=== PATIENT | female | born 1985 | race Caucasian/White ===

== ENCOUNTER 2019-03-27 02:36 | Emergency (ER) | payer OTHER ==
[2019-03-27 02:59] VITALS: O2SAT 100
[2019-03-27] MEDS ORDERED: Reglan 10 MG/2 ML IV ONE (03:02)
[2019-03-27] MEDS ORDERED: PROTONIX 40 MG IV IV ONE ×2 (03:02→03:13)
[2019-03-27] MEDS ORDERED: Hydromorphone 1 mg/ml Ampule IV ONE (03:02)
[2019-03-27] MEDS ORDERED: Sodium Chloride 0.9% 1000 ML 1,000 ML IV STA (03:02)
[2019-03-27 03:12] LABS: Absolute Neutrophil Ct (ANC) 5.15 (1.4-6.9); BASOPHIL % 0.4 % (0.0-0.4); Basophil (Absolute #) 0.03 (0-0.4); Eosinophil % 4.2 % (0.00-5.0); Eosinophil (Absolute #) 0.32 (0-0.5); Hematocrit 39.4 % (35-47); Hemoglobin 12.4 gm/dl (12.0-16.0); Lymphocyte (Absolute #) 1.61 (1.0-4.6); Mean Cell Volume 87.9 fl (78-100); Mean Corpuscular Hemoglobin 27.7 pg (26-32); Mean Corpuscular Hgb Concent. 31.5 g/dl (32-36); Mean Platelet Volume 10.4 fl (6-9.5); Monocyte (Absolute #) 0.56 (0.0-1.3); Monocytes % 7.3 % (0.0-12.0); Neutrophil % 67.1 % (36.0-66.0); Platelet Count 253 K/mm3 (150-450); Red Blood Count 4.48 M/mm3 (4.1-5.4); Red Cell Distribution Width 15.3 % (11.5-14.0); White Blood Count 7.7 K/mm3 (4.0-10.5)
[2019-03-27 03:13] LABS: INR 1.07 (0.8-3.0); PROTIME 12.1 SECONDS (9.95-12.35)
[2019-03-27] MEDS ORDERED: Hydromorphone 1 mg/ml Ampule ONE (03:14)
[2019-03-27] MEDS ORDERED: Sodium Chloride 0.9% 1000 ML 1,000 ML ONE (03:14)
[2019-03-27] MEDS ORDERED: Reglan 10 MG/2 ML ONE (03:14)
[2019-03-27 03:18] LABS: ALBUMIN 4.4 g/dL (3.5-5.0); ALKALINE PHOSPHATASE 72 U/L (38-126); AMYLASE 50 U/L (30-110); ANION GAP 14.9 MEQ/L (5-15); BLOOD UREA NITROGEN 10 mg/dL (7-17); CHLORIDE 105 mmol/L (98-107); Calcium 9.4 mg/dL (8.4-10.2); Carbon Dioxide 24 mmol/L (22-30); Glucose 154 mg/dL (74-106); LIPASE 45 U/L (23-300); Potassium 3.8 mmol/L (3.5-5.1); SGOT/AST 25 U/L (14-36); SGPT/ALT 21 U/L (0-35); SODIUM 141 mmol/L (137-145); Total Protein 8.6 g/dL (6.3-8.2)
[2019-03-27 03:23] LABS: Appearance SLIGHTLY CLOUDY (CLEAR); Bacteria RARE /HPF (NEGATIVE); Bilirubin NEGATIVE (NEGATIVE); Blood NEGATIVE Ery/ul (0-5); Epithelial Cells RARE /HPF (FEW); Glucose NEGATIVE (NEGATIVE); Ketones NEGATIVE (NEGATIVE); Leukocyte Esterase NEGATIVE (NEGATIVE); Mucus SLIGHT /HPF (NEGATIVE); Nitrite NEGATIVE (NEGATIVE); Protein,Urine Dip NEGATIVE (Negative); Specific Gravity 1.024 (1.005-1.025); Urobilinogen NEGATIVE mg/dL (0-1)
[2019-03-27] MEDS ORDERED: XYLOCAINE HCl Viscous ONE (03:28)
[2019-03-27] MEDS ORDERED: MAALOX ES 30 ML UNIT DOSE ONE (03:28)
[2019-03-27] MEDS ORDERED: GI COCKTAIL 45 ML (Maalox/Lidocaine) PO ONE (03:31)
[2019-03-27] MEDS ORDERED: Zofran 4 MG/2 ML VIAL ONE (04:52)
[2019-03-27] MEDS ORDERED: Zofran 4 MG/2 ML VIAL IV ONE (04:57)
--- NOTE | 2019-03-27 05:15 | ERPHSYRPT ---
- History of Present Illness Time Seen by Provider: 03/27/19 03:30 Patient Subjective Stated Complaint: PT HAS HAD ABDOMINAL PAIN THAT RADIATEDS TO BACK, ACCOMPANIED BY NAUSEA AND DIARRHEA X 1 WEEK. PT STATES THAT SHE HAS A HISTORY OF DIVERTICULITIS. Triage Nursing Assessment: PT RATES PAIN IN ABDOMEN AT 10/10, BP ELEVATED AT 131 /106. HYPO ACTIVE BOWEL SOUNDS HER IN ALL 4 QUADRANTS. Physician History: patient is a 30-year-old white female who presents with a complaint of epigastric pain which has been coming and going for approximately one week. She 's never had any similar episodes the pain does radiate to the back somewhat she's had nausea but no vomiting her gallbladder is been surgically removed she had some sweats and chills but no fever she also has had some diarrhea including 3 episodes this morning. Timing/Duration: week(s) (1) Activities at Onset: none Quality: sharpness, stabbing Abdominal Pain Onset Location: epigastric Pain Radiation: back Severity of Pain-Max: moderate Severity of Pain-Current: moderate Modifying Factors: Improves With: nothing Associated Symptoms: diaphoresis, diarrhea, nausea, No vomiting Previous symptoms: same symptoms as today Allergies/Adverse Reactions: acetaminophen [From Tylenol] Allergy (Verified 03/27/19 03:00) isopropyl alcohol Allergy (Verified 03/27/19 03:00) Home Medications: Liraglutide [Victoza 2-Al] 0.6 mg PO HS 03/27/19 [History] Loratadine 10 mg PO DAILY 03/27/19 [History] Metformin HCl 500 mg PO DAILY 03/27/19 [History] Sertraline HCl 100 mg PO DAILY 03/27/19 [History] Hx Tetanus, Diphtheria Vaccination/Date Given: No (UNKNOWN) Hx Influenza Vaccination/Date Given: No Hx Pneumococcal Vaccination/Date Given: No - Review of Systems Constitutional: No Fever, No Chills Eyes: No Symptoms Ears, Nose, & Throat: No Symptoms Respiratory: No Cough, No Dyspnea Cardiac: No Chest Pain, No Edema, No Syncope Abdominal/Gastrointestinal: Abdominal Pain, Nausea, Diarrhea, No Vomiting Genitourinary Symptoms: No Dysuria Musculoskeletal: No Back Pain, No Neck Pain Skin: No Rash Neurological: No Dizziness, No Focal Weakness, No Sensory Changes Psychological: No Symptoms Endocrine: No Symptoms All Other Systems: Reviewed and Negative - Past Medical History Pertinent Past Medical History: No Neurological History: No Pertinent History ENT History: No Pertinent History Cardiac History: No Pertinent History Respiratory History: No Pertinent History Endocrine Medical History: No Pertinent History Musculoskeletal History: No Pertinent History GI Medical History: No Pertinent History History: No Pertinent History Psycho-Social History: No Pertinent History Female Reproductive Disorders: Other Other Medical History: PT STATES HER DR WENT TO TAKE OUT MIRANA AND HE COULDN'T FIND IT. - Past Surgical History Past Surgical History: Yes Neuro Surgical History: No Pertinent History Cardiac: No Pertinent History Respiratory: No Pertinent History Gastrointestinal: Cholecystectomy, Exploratory Laparoscopy Musculoskeletal: No Pertinent History Female Surgical History: Section - Social History Smoking Status: Never smoker Exposure to second hand smoke: No Drug Use: none Patient Lives Alone: No - Female History Hx Last Menstrual Period: DEPO SHOTS Hx Now: No - Nursing Vital Signs Nursing Vital Signs: Initial Vital Signs Temperature 97.7 F 03/27/19 02:38 Pulse Rate 108 H 03/27/19 02:38 Respiratory Rate 18 03/27/19 02:38 Blood Pressure 131/106 03/27/19 02:38 O2 Sat by Pulse Oximetry 100 03/27/19 02:38 Pain Scale Pain Intensity 0 - Physical Exam General Appearance: moderate distress, alert Eye Exam: PERRL/EOMI, eyes nml inspection Ears, Nose, Throat Exam: normal ENT inspection, pharynx normal, moist mucous membranes Neck Exam: normal inspection, non-tender, supple, full range of motion Respiratory Exam: normal breath sounds, lungs clear, No respiratory distress Cardiovascular Exam: regular rate/rhythm, normal heart sounds Gastrointestinal/Abdomen Exam: tenderness, guarding, No mass Back Exam: normal inspection, normal range of motion, No CVA tenderness, No vertebral tenderness Extremity Exam: normal inspection, normal range of motion, pelvis stable Neurologic Exam: alert, oriented x 3, cooperative, normal mood/affect, nml cerebellar function, sensation nml, No motor deficits Skin Exam: normal color, warm, dry SpO2: 100 - CT Exams Abdomen/Pelvis CT Interpretation: Negative (ows no acute abdominal findings status post cholecystectomy no CT evidence of acute appendicitis or bowel obstruction no acute diverticulitis splenomegaly with small focal calcification) Ordered Tests: Active Orders 24 hr Category Date Time Status IV Insertion STAT Care 03/27/19 03:02 Active NPO (ED) STAT Care 03/27/19 03:02 Active ABDOMEN AND PELVIS W CONTRAST [CT] Stat Exams 03/27/19 03:03 Taken AMYLASE Stat Lab 03/27/19 03:08 Completed CBC W DIFF Stat Lab 03/27/19 03:08 Completed CMP Stat Lab 03/27/19 03:08 Completed HCG QUALITATIVE,SERUM Stat Lab 03/27/19 03:08 Completed LIPASE Stat Lab 03/27/19 03:08 Completed Lactic Acid Stat Lab 03/27/19 03:25 Completed PROTIME WITH INR Stat Lab 03/27/19 03:08 Completed UA W/RFX UR CULTURE Stat Lab 03/27/19 03:08 Completed Medication Summary Discontinued Medications Generic Name Dose Route Start Last Admin Trade Name Freq PRN Reason Stop Dose Admin Al Hydrox/Mg Hydrox/Simethicone Confirm 03/27/19 03:28 Maalox Es 30 Ml Unit Dose Administered 03/27/19 03:29 Dose 30 ml .ROUTE .STK-MED ONE Hydromorphone HCl 1 mg 03/27/19 03:02 03/27/19 03:16 Hydromorphone 1 Mg/Ml Ampule IV 03/27/19 03:03 1 mg STAT ONE Administration Hydromorphone HCl Confirm 03/27/19 03:14 Hydromorphone 1 Mg/Ml Ampule Administered 03/27/19 03:15 Dose 1 mg .ROUTE .STK-MED ONE Sodium Chloride 1,000 mls @ 999 mls/hr 03/27/19 03:02 03/27/19 03:17 Sodium Chloride 0.9% 1000 Ml IV 03/27/19 04:02 999 mls/hr .Q1H1M STA Administration Sodium Chloride Confirm 03/27/19 03:14 Sodium Chloride 0.9% 1000 Ml Administered 03/27/19 03:15 Dose 1,000 mls @ ud .ROUTE .STK-MED ONE Lidocaine HCl Confirm 03/27/19 03:28 Xylocaine Hcl Viscous * Administered 03/27/19 03:29 Dose 1 ml .ROUTE .STK-MED ONE Magnesium Hydroxide 45 ml 03/27/19 03:31 03/27/19 03:34 Gi Cocktail 45 Ml (Maalox/Lidocaine) PO 03/27/19 03:32 45 ml STAT ONE Administration Metoclopramide HCl 10 mg 03/27/19 03:02 03/27/19 03:15 Reglan 10 Mg/2 Ml IV 03/27/19 03:03 10 mg STAT ONE Administration Metoclopramide HCl Confirm 03/27/19 03:14 Reglan 10 Mg/2 Ml Administered 03/27/19 03:15 Dose 10 mg .ROUTE .STK-MED ONE Ondansetron HCl Confirm 03/27/19 04:52 Zofran 4 Mg/2 Ml Vial Administered 03/27/19 04:53 Dose 4 mg .ROUTE .STK-MED ONE Ondansetron HCl 4 mg 03/27/19 04:57 03/27/19 05:01 Zofran 4 Mg/2 Ml Vial IV 03/27/19 04:58 4 mg STAT ONE Administration Pantoprazole Sodium 40 mg 03/27/19 03:02 03/27/19 03:16 Protonix 40 Mg Iv IV 03/27/19 03:03 40 mg STAT ONE Administration Pantoprazole Sodium Confirm 03/27/19 03:13 Protonix 40 Mg Iv Administered 03/27/19 03:14 Dose 40 mg IV .STK-MED ONE Lab/Rad Data: Laboratory Result Diagrams 03/27/19 03:08 03/27/19 03:08 Laboratory Results 03/27/19 03/27/19 03/27/19 Range/Units 03:25 03:08 03:08 WBC (4.0-10.5) K/mm3 RBC (4.1-5.4) M/mm3 Hgb (12.0-16.0) gm/dl Hct (35-47) % MCV (78-100) fl MCH (26-32) pg MCHC (32-36) g/dl RDW (11.5-14.0) % Plt Count (150-450) K/mm3 MPV (6-9.5) fl Gran % (36.0-66.0) % Eos # (Auto) (0-0.5) Absolute Lymphs (auto) (1.0-4.6) Absolute Monos (auto) (0.0-1.3) Lymphocytes % (24.0-44.0) % Monocytes % (0.0-12.0) % Eosinophils % (0.00-5.0) % Basophils % (0.0-0.4) % Absolute Granulocytes (1.4-6.9) Basophils # (0-0.4) PT (9.95-12.35) SECONDS INR (0.8-3.0) Sodium (137-145) mmol/L Potassium (3.5-5.1) mmol/L Chloride (98-107) mmol/L Carbon Dioxide (22-30) mmol/L Anion Gap (5-15) MEQ/L BUN (7-17) mg/dL Creatinine (0.52-1.04) mg/dL Estimated GFR ML/MIN Glucose (74-106) mg/dL Lactic Acid 1.1 (0.4-2.0) Calcium (8.4-10.2) mg/dL Total Bilirubin (0.2-1.3) mg/dL AST (14-36) U/L ALT (0-35) U/L Alkaline Phosphatase (38-126) U/L Serum Total Protein (6.3-8.2) g/dL Albumin (3.5-5.0) g/dL Amylase (30-110) U/L Lipase (23-300) U/L Serum , Qual NEGATIVE (Negative) Urine Color YELLOW (YELLOW) Urine Appearance SLIGHTLY CLOUDY (CLEAR) Urine pH 5.0 (5-6) Ur Specific [place] 1.024 (1.005-1.025) Urine Protein NEGATIVE (Negative) Urine Ketones NEGATIVE (NEGATIVE) Urine Blood NEGATIVE (0-5) Maninder/ul Urine Nitrite NEGATIVE (NEGATIVE) Urine Bilirubin NEGATIVE (NEGATIVE) Urine Urobilinogen NEGATIVE (0-1) mg/dL Ur Leukocyte Esterase NEGATIVE (NEGATIVE) Urine WBC (Auto) 3-5 (0-5) /HPF Urine RBC (Auto) 3-5 (0-2) /HPF U Epithel Cells (Auto) RARE (FEW) /HPF Urine Bacteria (Auto) RARE (NEGATIVE) /HPF Urine Mucus (Auto) SLIGHT (NEGATIVE) /HPF Urine Culture Reflexed NO (NO) Urine Glucose NEGATIVE (NEGATIVE) mg/dL 03/27/19 03/27/19 03/27/19 Range/Units 03:08 03:08 03:08 WBC 7.7 (4.0-10.5) K/mm3 RBC 4.48 (4.1-5.4) M/mm3 Hgb 12.4 (12.0-16.0) gm/dl Hct 39.4 (35-47) % MCV 87.9 (78-100) fl MCH 27.7 (26-32) pg MCHC 31.5 L (32-36) g/dl RDW 15.3 H (11.5-14.0) % Plt Count 253 (150-450) K/mm3 MPV 10.4 H (6-9.5) fl Gran % 67.1 H (36.0-66.0) % Eos # (Auto) 0.32 (0-0.5) Absolute Lymphs (auto) 1.61 (1.0-4.6) Absolute Monos (auto) 0.56 (0.0-1.3) Lymphocytes % 21.0 L (24.0-44.0) % Monocytes % 7.3 (0.0-12.0) % Eosinophils % 4.2 (0.00-5.0) % Basophils % 0.4 (0.0-0.4) % Absolute Granulocytes 5.15 (1.4-6.9) Basophils # 0.03 (0-0.4) PT 12.1 (9.95-12.35) SECONDS INR 1.07 (0.8-3.0) Sodium 141 (137-145) mmol/L Potassium 3.8 (3.5-5.1) mmol/L Chloride 105 (98-107) mmol/L Carbon Dioxide 24 (22-30) mmol/L Anion Gap 14.9 (5-15) MEQ/L BUN 10 (7-17) mg/dL Creatinine 0.70 (0.52-1.04) mg/dL Estimated GFR > 60.0 ML/MIN Glucose 154 H (74-106) mg/dL Lactic Acid (0.4-2.0) Calcium 9.4 (8.4-10.2) mg/dL Total Bilirubin 0.50 (0.2-1.3) mg/dL AST 25 (14-36) U/L ALT 21 (0-35) U/L Alkaline Phosphatase 72 (38-126) U/L Serum Total Protein 8.6 H (6.3-8.2) g/dL Albumin 4.4 (3.5-5.0) g/dL Amylase 50 (30-110) U/L Lipase 45 (23-300) U/L Serum , Qual (Negative) Urine Color (YELLOW) Urine Appearance (CLEAR) Urine pH (5-6) Ur Specific [place] (1.005-1.025) Urine Protein (Negative) Urine Ketones (NEGATIVE) Urine Blood (0-5) Maninder/ul Urine Nitrite (NEGATIVE) Urine Bilirubin (NEGATIVE) Urine Urobilinogen (0-1) mg/dL Ur Leukocyte Esterase (NEGATIVE) Urine WBC (Auto) (0-5) /HPF Urine RBC (Auto) (0-2) /HPF U Epithel Cells (Auto) (FEW) /HPF Urine Bacteria (Auto) (NEGATIVE) /HPF Urine Mucus (Auto) (NEGATIVE) /HPF Urine Culture Reflexed (NO) Urine Glucose (NEGATIVE) mg/dL - Progress Progress: improved - Departure Departure Disposition: Home (aand) Clinical Impression: Abdominal pain Condition: Stable Critical Care Time: No Referrals: ADRIAN AMEZCUA MD [Primary Care Provider] - Prescriptions: Pantoprazole Sodium [Protonix] 40 mg PO DAILY 30 Days #30 tablet. Tramadol HCl [Conzip] 100 mg PO Q6H 3 Days #20 [id number]
[2019-03-27 05:24] VITALS: BP 107/72; PULSE 89
--- NOTE | 2019-03-27 09:01 | XRAY ---
Indication: Upper abdomen pain with nausea and diarrhea 1 week Multiple contiguous axial images obtained through the abdomen and pelvis using 80 cc Isovue 370 contrast as ordered. Comparison: May 08, 2014. Lung bases demonstrates bilateral dependent atelectasis. No infiltrate or effusion. Heart is not enlarged. Stomach is distended with food/fluid. Noncontrasted stomach and bowel loops appear nonobstructed. Normal appendix. There is mild sigmoid diverticulosis. Again previous cholecystectomy. No free fluid/air. Spleen remains enlarged today measuring 17.5 cm in CC dimension. 2 cm right lower renal cyst not well seen on previous noncontrast exam. Remaining liver, pancreas, spleen, adrenal glands, kidneys, ureters, uterus, and bladder appear unremarkable for noncontrast exam. Aorta is normal in course and caliber. No AAA or pathologic retroperitoneal lymphadenopathy. Osseous structures intact again with mild levoscoliosis centered at L3. Impression: 1. Splenomegaly, sigmoid diverticulosis, and right renal cyst. 2. Remaining CT abdomen/pelvis with contrast exam is negative. Comment: Preliminary interpretation was made by [facility]. No critical discrepancy. CT DI 24.93
== END 2019-03-27 05:35 | disposition home or self-care (01) ==
LOC: ED 02:36
DX: R10.13 Epigastric pain (principal); R61 Generalized hyperhidrosis; R19.7 Diarrhea, unspecified; R11.0 Nausea; Z79.899 Other long term (current) drug therapy
CPT/HCPCS: 36000; 36415; 74177; 80053; 81001; 81025; 82150; 83605; 83690; 85025; 85610; 96360; 96374; 96375; 96376; 99284; J1170; J2405; A9270-GY